=== PATIENT | female | born 1975 | race Caucasian/White ===

== ENCOUNTER 2016-08-02 00:54 | Emergency (ER) | payer OTHER ==
[~2016-08-02] VITALS: Ht 162.6 cm; Wt 99.0 kg
[~2016-08-02 00:54] MED LIST: AZEL0.15 NAE; FLUT0.15; OXYC7.5T78 PO; XPNIN INH
[2016-08-02 00:58] VITALS: TEMP 36.9; Ht 162.6 cm; Wt 99.0 kg
[2016-08-02] MEDS ORDERED: MoRPHine SULFATE 4 MG/ML 1 ML CARP\\VIAL IV STA (01:19)
[2016-08-02] MEDS ORDERED: ONDANSETRON INJ 2 MG/ML 2 ML VIAL IV STA (01:19)
[2016-08-02 01:52] LABS: BASO % 0.5 %; BASO ABS # 0.05 K/uL (0-0.2); COMPLETE YES; EOS % 4.5 %; IG% 0.3 %; LYMPH % 32.8 %; LYMPH ABS # 3.39 K/uL (1.2-3.4); MEAN CELL VOLUME 86.9 fL (80-100); MEAN CORPUSCULAR HEMOGLOBIN 29.9 pg (25-34); MEAN CORPUSCULAR HGB CONC 34.4 g/dl (32-36); MEAN PLATELET VOLUME 10.4 fL (7.4-10.4); MONO % 8.7 %; NEUT % 53.2 %; PLATELET COUNT 257 K/uL (130-400); RED BLOOD COUNT 4.95 M/uL (4.2-5.4); WHITE BLOOD COUNT 10.33 K/uL (4.8-10.8)
[2016-08-02 02:08] LABS: BUN/CREATININE RATIO 13.7 (10-20); C-REACTIVE PROTEIN 0.52 mg/dl (0-0.29); CALCIUM 8.2 mg/dl (8.5-10.1); CREATININE 0.8 mg/dl (0.60-1.20); POTASSIUM 3.9 mmol/L (3.5-5.1)
[2016-08-02] MEDS ORDERED: GADAVIST IV PRN (02:45)
--- NOTE | 2016-08-02 03:55 | EMERGENCY ROOM VISIT NOTE ---
History First contact with patient: 01:14 Chief Complaint: BACK PAIN Stated Complaint: PAIN History of Present Illness The patient is a 41 year old female who presents to the Emergency Room with complaints of severe neck pain that radiates down both arms the past few days after getting KYLER injection by Dr. Arenas on . She describes the pain as aching, ranging in severity 9 out of 10. Nothing makes it better or worse. Her Percocet is not helping. Patient called Dr. arenas and was advised to contact her spinal surgeon. She spoke to Dr. Lopez and is advised to go the ER for an updated MRI. She just had a cervical MRI July [id number]. This showed anterior cervical discectomy and fusion of C4 through C6. C6 and 7 with this osteophyte ridging with moderate bilateral foraminal narrowing. I did obtain the MRI report. Patient denies fevers, chills, numbness, tingling, chest pain, dyspnea, abdominal pain, swelling, drainage from injection site. Patient denies difficulties grasping objects or holding objects. Review of Systems See HPI for pertinent positives & negatives. A total of 10 systems reviewed and were otherwise negative. Past Medical/Surgical History Medical Problems: (1) Kidney stone (2) Ovarian cyst Surgical Problems: (1) History of cholecystectomy (2) History of hysterectomy Family History Diabetes mellitus FH: cancer FH: heart disease FH: lung disease Hypertension Kidney stones Social History Smoking Status: Never Smoker Smokeless Tobacco Use: No Drug Use: none Marital Status: Occupation Status: disabled Current/Historical Medications Scheduled Azelastine Hcl (Astepro), 2 SPRY MALI BID Cetirizine (Zyrtec), 10 MG PO QAM Fluticasone Propionate (Nasal) (Flonase Allergy Relief), 2 SPRAY NA BID Montelukast Sodium (Singulair), 10 MG PO HS Multiple Vitamins W/ Minerals (Centrum), 1 TAB PO QAM Ranitidine Hcl (Zantac), 300 MG PO BID Sertraline (Zoloft), 100 MG PO HS [Formula 303], 2 TAB PO QID Scheduled PRN Amoxicillin (Amoxil), 2,000 MG PO DAILY PRN for prior to dental appointments Calcium Glycerophosphate (Prelief), 1 TAB PO DIRECTED PRN for TAKE BEFORE DRINKING SODA Levalbuterol Tartrate (Xopenex Hfa), 2 PUFFS INH Q4 PRN for Shortness of Breath Oxycodone/Acetaminophen 5MG/325MG (Percocet 5MG/325MG), 1 TABLET PO Q4H PRN for Pain Tizanidine (Zanaflex), 4 MG PO BID PRN for Pain Allergies Coded Allergies: Codeine (Unverified Allergy, Intermediate, n/v, 08/02/16) Indomethacin (Unverified Allergy, Intermediate, n/v, 08/02/16) Levofloxacin (Unverified Allergy, Intermediate, hives, 08/02/16) Nortriptyline (Unverified Allergy, Intermediate, rash, 08/02/16) Tetracyclines (Unverified Allergy, Intermediate, rash/hives, 08/02/16) Azithromycin (Unverified Allergy, Unknown, HIVES, 08/02/16) Cefaclor (Unverified Allergy, Unknown, HIVES, 08/02/16) Cefuroxime (Unverified Allergy, Unknown, rash, 08/02/16) Erythromycin (Verified Allergy, Unknown, AKNE-MYCIN--HIVES, 08/02/16) Fluoxetine (Unverified Allergy, Unknown, HIVES, 08/02/16) Medroxyprogesterone (Unverified Allergy, Unknown, HIVES, 08/02/16) Tramadol (Unverified Allergy, Unknown, ., 08/02/16) Uncoded Allergies: DERMABOND (Allergy, Mild, HIVES, 08/15/12) Physical Exam Vital Signs Date Time Temp Pulse Resp B/P Pulse Ox O2 Delivery O2 Flow Rate FiO2 08/02/16 03:18 76 16 112/64 96 Room Air 08/02/16 00:58 36.9 85 16 111/72 96 Room Air Physical Exam VITALS: Vitals are noted on the nurse's note and reviewed by myself. Vital signs stable. GENERAL: Pleasant female, in no acute distress, nondiaphoretic, well-developed well-nourished. SKIN: The skin was without rashes, erythema, edema, or bruising. There is no tenting of the skin. Capillary reflex less than 2 seconds. HEAD: Normocephalic atraumatic. EARS: External auditory canals clear, tympanic membranes pearly horvath without erythema or effusion bilaterally. EYES: Pupils equal round and reactive to light and accommodation. Conjunctivae without injection, sclerae without icterus. Extraocular movements intact. NOSE: Patent, turbinates without inflammation or discharge. MOUTH: Mucous membranes moist. Pharynx without erythema or exudate. Uvula midline. Airway patent. Tongue does not deviate. NECK: Supple without nuchal rigidity. No lymphadenopathy. No thyromegaly. Cervical spine is tender C6 and 7 without palpable abscess erythema or drainage over injection site. No JVD. HEART: Regular rate and rhythm without murmurs gallops or rubs. LUNGS: Clear to auscultation bilaterally without wheezes, rales or rhonchi. No dullness to percussion. No retractions or accessory muscle use. ABDOMEN: Positive bowel sounds x 4. Normal tympanic percussion. Soft, nontender, without masses or organomegaly. Dinh sign negative. No guarding or rebound tenderness. MUSCULOSKELETAL: No muscle atrophy, erythema, or edema noted. 5 out of 5 strength throughout. NEURO: Patient was alert and oriented to person place and time. Normal sensation to light and sharp touch. No focal neurological deficits. Medical Decision & Procedures Laboratory Results 08/02/16 01:40 Red Blood Count 4.95, Mean Corpuscular Volume 86.9, Mean Corpuscular Hemoglobin 29.9, Mean Corpuscular Hemoglobin Concent 34.4, Mean Platelet Volume 10.4, Neutrophils (%) (Auto) 53.2, Lymphocytes (%) (Auto) 32.8, Monocytes (%) (Auto) 8.7, Eosinophils (%) (Auto) 4.5, Basophils (%) (Auto) 0.5, Neutrophils # (Auto) 5.49, Lymphocytes # (Auto) 3.39, Monocytes # (Auto) 0.90, Eosinophils # (Auto) 0.47, Basophils # (Auto) 0.05 08/02/16 01:40 Test 08/02/16 01:40 White Blood Count 10.33 K/uL (4.8-10.8) Red Blood Count 4.95 M/uL (4.2-5.4) Hemoglobin 14.8 g/dL (12.0-16.0) Hematocrit 43.0 % (37-47) Mean Corpuscular Volume 86.9 fL (80-100) Mean Corpuscular Hemoglobin 29.9 pg (25-34) Mean Corpuscular Hemoglobin Concent 34.4 g/dl (32-36) Platelet Count 257 K/uL (130-400) Mean Platelet Volume 10.4 fL (7.4-10.4) Neutrophils (%) (Auto) 53.2 % Lymphocytes (%) (Auto) 32.8 % Monocytes (%) (Auto) 8.7 % Eosinophils (%) (Auto) 4.5 % Basophils (%) (Auto) 0.5 % Neutrophils # (Auto) 5.49 K/uL (1.4-6.5) Lymphocytes # (Auto) 3.39 K/uL (1.2-3.4) Monocytes # (Auto) 0.90 K/uL (0.11-0.59) Eosinophils # (Auto) 0.47 K/uL (0-0.5) Basophils # (Auto) 0.05 K/uL (0-0.2) RDW Standard Deviation 44.0 fL (36.4-46.3) RDW Coefficient of Variation 14.0 % (11.5-14.5) Immature Granulocyte % (Auto) 0.3 % Immature Granulocyte # (Auto) 0.03 K/uL (0.00-0.02) Erythrocyte Sedimentation Rate 30 mm/hr (0-21) Anion Gap 8.0 mmol/L (3-11) Est Creatinine Clear Calc Drug Dose 103.7 ml/min Estimated GFR () 104.7 Estimated GFR (Non- 90.3 BUN/Creatinine Ratio 13.7 (10-20) Calcium Level 8.2 mg/dl (8.5-10.1) C-Reactive Protein 0.52 mg/dl (0-0.29) Medications Administered Medications (Trade) Dose Ordered Sig/Damon Route Start Time Stop Time Status Last Admin Dose Admin Morphine Sulfate (MoRPHine SULFATE INJ) 4 mg NOW STAT IV 08/02/16 01:19 08/02/16 01:26 DC 08/02/16 01:19 4 MG Ondansetron HCl (Zofran Inj) 4 mg NOW STAT IV 08/02/16 01:19 08/02/16 01:26 DC 08/02/16 01:19 4 MG ED Course Prior records/ancillary studies reviewed. Triage Nursing notes reviewed. Additional history obtained from family. The patient's history was concerning for neck pain. Differential diagnosis: Etiologies such as musculoskeletal, disc herniation, fracture, metastatic disease, cord compression, discitis, infection, acute exacerbation of chronic neck pain, complication of recent injection, as well as others were entertained. Physical findings: As above. No focal neurologic findings noted. ER treatment provided: morphine, zofran On reassessment the patient felt better. Diagnostics interpreted by me: The labs revealed no worrisome leukocytosis or electrolyte abnormality Imaging studies: MRI C SPINE : Anterior fusion C4-C6 with plate and screw device in disc spacers. At C6-C7, posterior disc/osteophyte complex causes mild canal narrowing and abuts and minimally deforms the ventral aspect of the cord, greater towards the right, but CSF space is maintained posteriorly and laterally and there is no abnormal cord signal. Uncovertebral osteophytes cause moderate right and mild left foraminal narrowing. At C3-C4, minimal posterior disc bulge without significant canal narrowing. No abnormal enhancement or epidural collection. Small meningioma in T3 vertebral body. Incidentally noted. Radiologist: Rai Mcclain MD This appears to be consistent with cervical radiculopathy who had unchanged MRI and was neurovascularly and neurologically intact. She is advised to follow-up with orthopedic spine doctor in a few days or here in the ER sooner for severe pain, numbness, tingling, worsening signs or symptoms or as needed. Patient ambulated out of the ER without difficulties. By the evaluation outlined above emergent etiologies such as fracture, metastatic disease, infection, cord compression, as well as others were deemed relatively unlikely. The pt informed about the findings as listed above. All questions were answered and pleased with the treatment. Return instructions were outlined and the patient was discharged in stable condition. Patient receives Percocet from her family care doctor. She has this at home. Referral: The patient was referred back to spine or primary care physician for follow-up in 2 to 3 days for a recheck of the current condition. Case reviewed by attending. Medical Decision as above [place] Drug Monitoring Program Search Results: patient reviewed within database, no issues identified Impression Primary Impression: Cervical radiculopathy Departure Information Dispostion Home / Self-Care Condition GOOD Referrals Archie Thompson M.D. (PCP) Patient Instructions My [facility] Additional Instructions DO NOT drive, drink alcohol, operate machinery, or perform dangerous activities today. You were given medications in the ER that can affect your ability to safely function or operate a vehicle. Oxycodone (OxyIR) 5mg: Take 1-2 pills every four hours for breakthrough pain. Avoid alcohol, operating machinery or dangerous equipment, working on ladders or roofs, DRIVING, or situations where being under the influence may be dangerous. It is recommended to use an [id number] stool softener such as Colace, 100mg twice daily while taking this medication to avoid constipation. Ibuprofen(Motrin, Advil) may be used for fever or pain. Use 600mg every six hours as needed. Take with food. Avoid using more than 2400mg in a 24 hour period. Do not use 2400mg per day for more than three consecutive days without physician direction. Prolonged inappropriate use can lead to stomach upset or ulcers. This medication can be taken if you need to drive, work, or perform activities which may be dangerous when taking narcotic pain medication. (AND/OR) Acetaminophen(Tylenol) may be used for fever or pain. Use 1000mg every six hours as needed. Avoid using more than 3000mg in a 24 hour period. This medication can be taken if you need to drive, work, or perform activities which may be dangerous when taking narcotic pain medication. Rest and avoid heavy lifting until your symptoms resolve and then gradually return to full activity. A good rule of thumb is if it hurts your neck to perform a certain activity, then it should be avoided until you are healthy again. A heating pad, warm compresses, or a hot shower may help with tight muscles and can be done several times a day as needed. Continue current medications. Return to the ER immediately for any numbness, tingling, severe pain, loss of control of your bowels or bladder, inability to walk, or as needed. Follow up with your primary care physician/orthopedics spine within 3-5 days for a recheck of your current condition.
[2016-08-02 04:07] VITALS: BP 112/72; PULSE 77; O2SAT 94
--- NOTE | 2016-08-02 08:04 | DIAGNOSTIC IMAGING REPORT ---
CERVICAL SPINE MRI WITH AND WITHOUT CONTRAST HISTORY: SEVERE NECK PAIN AFTER EPIDURAL TECHNIQUE: Multiplanar multisequence MRI of the cervical spine was performed both before and after the use of intravenous contrast. COMPARISON STUDY: None. FINDINGS: Mild motion artifact. The visualized brain parenchyma is within normal limits. Cervical spinal cord image is normal signal intensity. A 6 mm hemangioma at T3. Anterior cervical discectomy and fusion from C4 through C6. Prevertebral soft tissues and the C1-C2 interval are maintained. No fractures identified. Moderate to severe disc space narrowing at C6-C7 and mild disc space narrowing at C3-C4. Postcontrast sequences show no abnormal enhancement. No epidural fluid collections. C2-C3: No significant central canal or neural foraminal narrowing. C3-C4: Small broad-based posterior disc bulge without central canal or neural foraminal narrowing. C4-C5: No significant central canal or neural foraminal narrowing. C5-C6: No significant central canal or neural foraminal narrowing. C6-C7: Small broad-based posterior disc bulge with a right paracentral focal disc protrusion which abuts and slightly deforms the right anterior cord. There is moderate right and mild left neural foraminal narrowing. C7-T1: No significant central canal or neural foraminal narrowing. IMPRESSION: 1. Anterior cervical discectomy and fusion from C4 through C6. 2. Small broad-based posterior disc bulge with a right paracentral focal disc protrusion at C6-C7. This abuts and slightly deforms the right anterior cord. There is moderate right and mild left neural foraminal narrowing. 3. Small broad-based posterior disc bulge at C3-C4 without significant central canal or neural foraminal narrowing. Electronically signed by: Guillermo Burger M.D. 08/02/2016 8:03 AM Dictated Date/Time: 08/02/2016 7:50 AM
[2016-09-15] MEDS ORDERED: AMOX500C3 PO (14:08)
[2016-09-15] MEDS ORDERED: SERT-234 PO (14:54)
[2016-09-15] MEDS ORDERED: TIZA4CAP PO (14:54)
[2016-09-15] MEDS ORDERED: CETI10TA84 PO (14:54)
[2016-09-15] MEDS ORDERED: MONT1TAB3 PO (14:54)
[2016-09-15] MEDS ORDERED: FORMULA 303 PO (14:54)
[2016-09-15] MEDS ORDERED: MULTCHW3 PO (14:54)
[2016-09-15] MEDS ORDERED: CALC-44 PO (14:54)
[2016-09-15] MEDS ORDERED: RANI300T PO (18:55)
[2017-01-01] MEDS ORDERED: GABA-113 PO (13:35)
== END 2016-08-02 04:08 | disposition home or self-care (01) ==
LOC: C.EDB 00:55 → C.EDA 04:08
DX: M54.12 Radiculopathy, cervical region (principal); Z87.442 Personal history of urinary calculi; Z79.899 Other long term (current) drug therapy

== ENCOUNTER 2016-09-15 19:30 | Emergency (ER) | payer OTHER ==
[~2016-09-15] VITALS: Ht 163.8 cm; Wt 99.6 kg
[~2016-09-15 19:30] MED LIST changes: +AMOX500C3 PO; +CALC-44 PO; +CETI10TA84 PO; +FORMULA 303 PO; +MONT1TAB3 PO; +MULTCHW3 PO; +RANI300T PO; +SERT-234 PO; +TIZA4CAP PO
[2016-09-15 19:36] VITALS: BP 122/77; PULSE 104; TEMP 36.7; O2SAT 96; Ht 163.8 cm; Wt 99.6 kg
[2016-09-15] MEDS ORDERED: PRED20TA PO (19:59)
--- NOTE | 2016-09-15 19:59 | EMERGENCY ROOM VISIT NOTE ---
History Report prepared by Ester: Ada Romano Under the Supervision of: Dr. Joel Smith D.O. First contact with patient: 19:42 Chief Complaint: ALLERGIC REACTION Stated Complaint: ALLERGIC REACTIONS History of Present Illness The patient is a 41 year old female who presents to the Emergency Room with complaints of a worsening allergic reaction beginning 4 days ago. A number of years ago the patient had surgery on her neck for cervical fusion of two disks. She returned to the same doctor four days ago for a discogram with contrast done on her C3 and C7 vertebrae. She has 3 injection sites in the front of her neck. The patient states that there was iodine used over the front of her neck and did run down the back of her neck. The injection sites became red and itchy "welts" when she awoke four days ago. The rash has now progressed to itchy hives covering her shoulder, chest, neck, and behind her right ear. The patient has been taking Benadryl without any relief. She denies shortness of breath, difficulty breathing, and throat swelling. Source of History: patient Onset: 4 days ago Position: neck Quality: other (itchy) Timing: worsening Modifying Factors (Worsening): other (recent discogram) Associated Symptoms: + rash, No SOB Note: Pt denies difficulty breathing and throat swelling. Review of Systems See HPI for pertinent positives & negatives. A total of 10 systems reviewed and were otherwise negative. Past Medical & Surgical Medical Problems: (1) Kidney stone (2) Ovarian cyst Surgical Problems: (1) History of cholecystectomy (2) History of hysterectomy Family History Diabetes mellitus FH: cancer FH: heart disease FH: lung disease Hypertension Kidney stones Social History Smoking Status: Never Smoker Drug Use: none Marital Status: Occupation Status: disabled Current/Historical Medications Scheduled Cetirizine (Zyrtec), 10 MG PO QAM Gabapentin (Gabapentin), 400 MG PO TID Montelukast Sodium (Singulair), 10 MG PO HS Multiple Vitamins W/ Minerals (Centrum), 1 TAB PO QAM Prednisone (Prednisone), 2 TAB PO DAILY Ranitidine Hcl (Zantac), 300 MG PO BID Sertraline (Zoloft), 100 MG PO HS [Formula 303], 2 TAB PO QID Scheduled PRN Amoxicillin (Amoxil), 2,000 MG PO DAILY PRN for prior to dental appointments Azelastine Hcl (Astepro), 2 SPRY MALI BID PRN for Nasal Congestion Calcium Glycerophosphate (Prelief), 1 TAB PO DIRECTED PRN for TAKE BEFORE DRINKING SODA Fluticasone Propionate (Nasal) (Flonase Allergy Relief), 2 SPRAY NA BID PRN for Nasal Congestion Levalbuterol Tartrate (Levalbuterol Tartrate Hfa), 2 PUFFS INH Q4 PRN for SOB/ Wheezing Oxycodone/Acetaminophen 5MG/325MG (Oxycodone/Acetaminophen 5MG/325MG), 1 TABLETS PO Q4H PRN for Pain Tizanidine (Zanaflex), 4 MG PO BID PRN for Pain Allergies Coded Allergies: Codeine (Unverified Allergy, Intermediate, n/v, 09/15/16) Esomeprazole (Verified Allergy, Intermediate, HIVES, 09/15/16) Indomethacin (Unverified Allergy, Intermediate, n/v, 09/15/16) Levofloxacin (Unverified Allergy, Intermediate, hives, 09/15/16) Nortriptyline (Unverified Allergy, Intermediate, rash, 09/15/16) Tetracyclines (Unverified Allergy, Intermediate, rash/hives, 09/15/16) Azithromycin (Unverified Allergy, Unknown, HIVES, 09/15/16) Cefaclor (Unverified Allergy, Unknown, HIVES, 09/15/16) Cefuroxime (Unverified Allergy, Unknown, rash, 09/15/16) Erythromycin (Verified Allergy, Unknown, AKNE-MYCIN--HIVES, 09/15/16) Fluoxetine (Unverified Allergy, Unknown, HIVES, 09/15/16) Medroxyprogesterone (Unverified Allergy, Unknown, HIVES, 09/15/16) Tramadol (Unverified Allergy, Unknown, ., 09/15/16) Uncoded Allergies: DERMABOND (Allergy, Mild, HIVES, 08/15/12) Physical Exam Vital Signs Date Time Temp Pulse Resp B/P Pulse Ox O2 Delivery O2 Flow Rate FiO2 09/15/16 19:58 Room Air 09/15/16 19:36 36.7 104 21 122/77 96 Room Air Physical Exam CONSTITUTIONAL/VITAL SIGNS: Reviewed / noted above. GENERAL: Non-toxic in appearance. INTEGUMENTARY: Warm, dry, and [place]. HEAD: Normocephalic. EYES: without scleral icterus or trauma. ENT/OROPHARYNX: clear and moist. There are three puncture sites with mild surrounding erythema in the anterior neck, two on the right and one on the left. No clear infection at this point. There is a small erythematous/ vesicular rash behind the right ear and one in the mid-cervical region posteriorly. This has an appearance of contact dermatitis. LYMPHADENOPATHY/NECK: Is supple without lymphadenopathy or meningismus. RESPIRATORY: Lungs clear and equal. CARDIOVASCULAR: Regular rate and rhythm. GI/ABDOMEN: Soft and nontender. No organomegaly or pulsatile mass. No rebound or guarding. Normal bowel sounds. EXTREMITIES: Warm and well perfused. BACK: No CVA tenderness. NEUROLOGICAL: Intact without focal deficits. PSYCHIATRIC: normal affect. MUSCULOSKELETAL: Normally developed with good muscle tone. Medical Decision & Procedures Medications Administered Medications (Trade) Dose Ordered Sig/Damon Route Start Time Stop Time Status Last Admin Dose Admin Prednisone (PredniSONE TAB) 60 mg NOW STAT PO 09/15/16 19:52 09/15/16 19:53 DC 09/15/16 20:04 60 MG ED Course 1942: Previous medical records were reviewed. The patient was evaluated in room A11. A complete history and physical examination was performed. At this time, I discussed the results and treatment plan with the patient. I answered all pertaining questions that she had. She expressed understanding and verbalized agreement. The patient will be discharged home. 1951: Prednisone 60 mg PO. Medical Decision Differential diagnosis: Etiologies such as allergic reaction, anaphylaxis, urticaria, Velazquez-Andre syndrome, toxic epidermal necrolysis, erythema multiforme, cellulitis, as well as others were entertained. This is a 41-year-old female who presents to the ED with a chief complaint of a possible allergic reaction. The patient states that she had a discogram 4 days ago at [facility]. The patient reports that she had 2 injections in the right anterior neck and one injection into the left anterior neck to reach the cervical discs. The patient reports some itchiness as well as some rashes on her skin. The rashes are behind the right ear and in the posterior cervical region. She states that they did use Betadine over the entire neck during the procedure. She denies any trouble breathing or any wheezing or sensation of airway closure. Her vital signs are stable. Physical exam reveals a small area of contact dermatitis appearing rash behind the right ear as well as one in the posterior cervical region in the midline. These each are approximately the size of a quarter. There are no other evidence of hives on the body. The patient was treated with prednisone. She is told to use cortisone over the rashes specifically. She is taking Benadryl. Follow-up with PCP recommended. Impression Primary Impression: Contact dermatitis Scribe Attestation The scribe's documentation has been prepared under my direction and personally reviewed by me in its entirety. I confirm that the note above accurately reflects all work, treatment, procedures, and medical decision making performed by me. Departure Information Dispostion Home / Self-Care Prescriptions Prednisone (Prednisone) 20 Mg Tab 2 TAB PO DAILY for 4 Days, #8 TAB Prov: Joel Smith D.O. 09/15/16 Referrals Archie Thompson M.D. (PCP) Forms HOME CARE DOCUMENTATION FORM, IMPORTANT VISIT INFORMATION Patient Instructions My [facility] Additional Instructions Prednisone as prescribed. Continue Benadryl for itching. Use topical cortisone cream on the rashes. Follow-up with PCP for recheck in 3 days. Problem Qualifiers Primary Impression: Contact dermatitis Contact dermatitis type: allergic Contact dermatitis trigger: other chemical product Qualified Codes: L23.5 - Allergic contact dermatitis due to other chemical products
[2016-09-15] MEDS ORDERED: NRN400 PO (20:14)
[2016-09-15] MEDS ORDERED: LEVA45AE INH (20:14)
[2016-09-15] MEDS ORDERED: OXYC-643 PO (20:14)
[2017-01-01] MEDS ORDERED: GABA-113 PO (13:35)
== END 2016-09-15 20:17 | disposition home or self-care (01) ==
LOC: C.EDB 19:32 → C.EDA 20:17
DX: T50.8X5A Adverse effect of diagnostic agents, initial encounter (principal); L30.8 Other specified dermatitis; Y84.8 Other medical procedures as the cause of abnormal reaction of the patient, or of later complication, without mention of misadventure at the time of the procedure

== ENCOUNTER 2016-10-08 13:24 | Emergency (ER) | payer OTHER ==
[~2016-10-08] VITALS: Ht 162.6 cm; Wt 100.5 kg
[~2016-10-08 13:24] MED LIST changes: +LEVA45AE INH; +NRN400 PO; +OXYC-643 PO; -OXYC7.5T78 PO; -XPNIN INH
[2016-10-08 13:38] VITALS: Ht 162.6 cm; Wt 100.5 kg
[2016-10-08] MEDS ORDERED: MoRPHine SULFATE 4 MG/ML 1 ML CARP\\VIAL IV STA (13:58)
[2016-10-08] MEDS ORDERED: SODIUM CHLORIDE 0.9% 1000ML 1,000 ML IV STA (13:58)
[2016-10-08] MEDS ORDERED: ONDANSETRON INJ 2 MG/ML 2 ML VIAL IV STA (13:58)
--- NOTE | 2016-10-08 14:06 | EMERGENCY ROOM VISIT NOTE ---
History First contact with patient: 13:46 Chief Complaint: HEADACHE Stated Complaint: HEADACHE AND RASH History of Present Illness The patient is a 41 year old female who presents to the Emergency Department by private vehicle for evaluation of her headache. The patient reports a significant past medical history of cervical disc disease. She had a myelogram performed at [facility] for evaluation of her cervical spine. This was performed on Saturday. On Saturday, she developed a headache which was worse with changes in position. She had complete resolve headache when laying flat. Her symptoms have worsened in intensity of the headache has worsened as well. She contacted her surgeon who directed her to the emergency Department for possible blood patch. The patient rates her current discomfort as a 10/10. She 's been taking Percocet for her neck with mild relief of symptoms. The patient denies any significant neck pain. There is been no changes in symptoms otherwise. She denies any numbness or weakness into the distal extremities. She denies any fevers, chills, blurry vision, double vision, slurred speech, facial droop, unilateral weakness/numbness, chest pain, or low back pain. Review of Systems A complete 10-point Review of Systems was discussed with the patient, with pertinent positives and negatives listed in the History of Present Illness. All remaining Review of Systems questions can be considered negative unless otherwise specified. Past Medical/Surgical History Medical Problems: (1) Kidney stone (2) Ovarian cyst Surgical Problems: (1) History of cholecystectomy (2) History of hysterectomy Family History Diabetes mellitus FH: cancer FH: heart disease FH: lung disease Hypertension Kidney stones Social History Smoking Status: Never Smoker Drug Use: none Marital Status: Occupation Status: disabled Current/Historical Medications Scheduled Cetirizine (Zyrtec), 10 MG PO QAM Gabapentin (Gabapentin), 400 MG PO TID Montelukast Sodium (Singulair), 10 MG PO HS Multiple Vitamins W/ Minerals (Centrum), 1 TAB PO QAM Ranitidine Hcl (Zantac), 300 MG PO BID Sertraline (Zoloft), 100 MG PO HS [Formula 303], 2 TAB PO QID Scheduled PRN Amoxicillin (Amoxil), 2,000 MG PO DAILY PRN for prior to dental appointments Azelastine Hcl (Astepro), 2 SPRY MALI BID PRN for Nasal Congestion Calcium Glycerophosphate (Prelief), 1 TAB PO DIRECTED PRN for TAKE BEFORE DRINKING SODA Fluticasone Propionate (Nasal) (Flonase Allergy Relief), 2 SPRAY NA BID PRN for Nasal Congestion Levalbuterol Tartrate (Levalbuterol Tartrate Hfa), 2 PUFFS INH Q4 PRN for SOB/ Wheezing Oxycodone/Acetaminophen 5MG/325MG (Oxycodone/Acetaminophen 5MG/325MG), 1 TABLETS PO Q4H PRN for Pain Tizanidine (Zanaflex), 4 MG PO BID PRN for Pain Allergies Coded Allergies: Codeine (Unverified Allergy, Intermediate, n/v, 10/08/16) Esomeprazole (Verified Allergy, Intermediate, HIVES, 10/08/16) Indomethacin (Unverified Allergy, Intermediate, n/v, 10/08/16) Levofloxacin (Unverified Allergy, Intermediate, hives, 10/08/16) Nortriptyline (Unverified Allergy, Intermediate, rash, 10/08/16) Tetracyclines (Unverified Allergy, Intermediate, rash/hives, 10/08/16) Azithromycin (Unverified Allergy, Unknown, HIVES, 10/08/16) Cefaclor (Unverified Allergy, Unknown, HIVES, 10/08/16) Cefuroxime (Unverified Allergy, Unknown, rash, 10/08/16) Erythromycin (Verified Allergy, Unknown, AKNE-MYCIN--HIVES, 10/08/16) Fluoxetine (Unverified Allergy, Unknown, HIVES, 10/08/16) Iodine (Verified Allergy, Unknown, rash, 10/08/16) Medroxyprogesterone (Unverified Allergy, Unknown, HIVES, 10/08/16) Tramadol (Unverified Allergy, Unknown, ., 10/08/16) Uncoded Allergies: DERMABOND (Allergy, Mild, HIVES, 08/15/12) Physical Exam Vital Signs Date Time Temp Pulse Resp B/P Pulse Ox O2 Delivery O2 Flow Rate FiO2 10/08/16 17:48 36.8 78 20 124/77 95 10/08/16 17:41 78 20 124/77 95 Room Air 10/08/16 16:47 81 20 119/81 94 Room Air 10/08/16 16:00 78 20 119/81 95 Room Air 10/08/16 15:22 78 20 121/74 95 Room Air 10/08/16 15:00 81 20 118/71 95 Room Air 10/08/16 13:38 36.8 88 20 121/74 94 Room Air Pain Rating (0-10): 10 Physical Exam VITAL SIGNS - Vital signs and nursing notes were reviewed. GENERAL - 41-year-old female appearing her stated age who is in no acute distress. Communicates well with provider and answers questions appropriately. HEAD - Normocephalic, Atraumatic. No Grimes's Sign or Raccoon's Eyes. No depressed skull fractures palpable. EYES - PERRL with EOMI bilaterally. Sclera anicteric. Palpebral conjunctiva pink and moist with no injection noted. EARS - No deformities of external structures noted on gross examination bilaterally. No pain elicited with palpation of the tragus bilaterally. External auditory canals without discharge or otorrhea. Tympanic membranes pearly horvath without retraction or bulging. NOSE - Midline and without cyanosis. No epistaxis or purulent drainage noted. Septum midline without deviation or septal hematoma noted. MOUTH/OROPHARYNX - Without perioral cyanosis. Buccal mucosa pink and moist and without leukoplakia. Tongue midline with equal elevation of palate bilaterally. No tonsillar hypertrophy, erythema, or exudates noted. Good dentition noted. NECK - Neck with FROM. Supple to palpation. No lymphadenopathy noted. No nuchal rigidity. LUNGS - Chest wall symmetric without accessory muscle use, intercostals retractions, or central cyanosis. Normal vesicular breath sounds CTA B/L. No wheezes, rales, or rhonchi appreciated. CARDIAC - RRR with S1/S2. No murmur, rubs, or gallops appreciated. BACK - no erythema or fluctuance to palpation noted to the lumbar spine. EXTREMITIES - No pretibial edema present. +3/5 radial and dorsalis pedis pulses palpated throughout. FROM with no tremors, fasciculations, or clonus noted on PROM throughout. +5/5 strength noted in UE/LE bilaterally. NEUROLOGIC - Cranial nerves II through XII grossly intact. Sensory intact to light touch throughout. Patellar reflexes +2/4. Patient able to perform rapid alternating movements appropriately. PSYCH - A&Ox3 and cooperates fully with examiner. Pt is very pleasant and interacts well with examiner. Medical Decision & Procedures Laboratory Results 4/24/17 14:40 Red Blood Count 5.08, Mean Corpuscular Volume 87.8, Mean Corpuscular Hemoglobin 30.1, Mean Corpuscular Hemoglobin Concent 34.3, Mean Platelet Volume 10.1, Neutrophils (%) (Auto) 67.6, Lymphocytes (%) (Auto) 20.5, Monocytes (%) (Auto) 7.1, Eosinophils (%) (Auto) 4.2, Basophils (%) (Auto) 0.4, Neutrophils # (Auto) 7.60, Lymphocytes # (Auto) 2.30, Monocytes # (Auto) 0.80, Eosinophils # (Auto) 0.47, Basophils # (Auto) 0.04 10/08/16 14:40 Test 10/08/16 14:40 10/08/16 15:44 White Blood Count 11.23 K/uL (4.8-10.8) Red Blood Count 5.08 M/uL (4.2-5.4) Hemoglobin 15.3 g/dL (12.0-16.0) Hematocrit 44.6 % (37-47) Mean Corpuscular Volume 87.8 fL (80-100) Mean Corpuscular Hemoglobin 30.1 pg (25-34) Mean Corpuscular Hemoglobin Concent 34.3 g/dl (32-36) Platelet Count 215 K/uL (130-400) Mean Platelet Volume 10.1 fL (7.4-10.4) Neutrophils (%) (Auto) 67.6 % Lymphocytes (%) (Auto) 20.5 % Monocytes (%) (Auto) 7.1 % Eosinophils (%) (Auto) 4.2 % Basophils (%) (Auto) 0.4 % Neutrophils # (Auto) 7.60 K/uL (1.4-6.5) Lymphocytes # (Auto) 2.30 K/uL (1.2-3.4) Monocytes # (Auto) 0.80 K/uL (0.11-0.59) Eosinophils # (Auto) 0.47 K/uL (0-0.5) Basophils # (Auto) 0.04 K/uL (0-0.2) RDW Standard Deviation 44.6 fL (36.4-46.3) RDW Coefficient of Variation 13.8 % (11.5-14.5) Immature Granulocyte % (Auto) 0.2 % Immature Granulocyte # (Auto) 0.02 K/uL (0.00-0.02) Anion Gap 4.0 mmol/L (3-11) Est Creatinine Clear Calc Drug Dose 113.0 ml/min Estimated GFR () 115.0 Estimated GFR (Non- 99.2 BUN/Creatinine Ratio 10.5 (10-20) Calcium Level 9.0 mg/dl (8.5-10.1) Chemistry Specimen Hemolysis Bedside Glucose 84 mg/dl (70-90) Medications Administered Medications (Trade) Dose Ordered Sig/Damon Route Start Time Stop Time Status Last Admin Dose Admin Sodium Chloride (Nss 1000ml) 1,000 ml @ 999 mls/hr Q1H1M STAT IV 10/08/16 13:58 10/08/16 14:58 DC 10/08/16 15:21 999 MLS/HR ED Course Patient was seen and evaluated by myself. Labs were drawn, saline lock and complete. The patient was hydrated with a 1000 mL normal saline bolus. I did speak with Dr. Contreras of anesthesia. He agrees to perform a blood patch after evaluate the patient. Blood patch was performed. The patient had resolved of symptoms. Patient was monitored in the emergency department for green one hour without return of symptoms. Patient was educated on today's findings. She was educated on worrisome symptoms for return visit to the emergency department. Patient discharged home in good condition. Medical Decision Given the patient's presentation and stated complaints, I did elect to perform the above-mentioned workup. The patient presents today with what appears to be a spinal headache. Her headache is positional only. She has no fever. She does have mild leukocytosis. She has no meningeal findings. Anesthesia was kind enough to perform a blood patch. This provided complete resolve symptoms for the patient. The patient was monitored for greater than one hour without return of symptoms. She'll follow-up with her specialists from today's visit. She will return for any changing or worsening symptoms. Patient discharged home in good condition. In the evaluation and treatment of this patient, the following differential diagnoses were considered: Migraine Headache, Intracranial Hemorrhage, Subdural Hematoma, Subarachnoid Hemorrhage, Cerebral Aneurysm, Temporal/Giant Cell Arteritis, Tension Headache, Meningitis, Encephalitis, or Hydrocephalus. Impression Primary Impression: Spinal headache Departure Information Dispostion Home / Self-Care Condition GOOD Referrals No Doctor, Assigned (PCP) Patient Instructions My [facility] Additional Instructions You have been treated in the Emergency Department for a Headache. For pain control, you can use the following jyfu-kia-rjuqayh medicines (if >12 yo): - Regular strength (325mg/tab) Tylenol (acetaminophen) 2 tabs every 4-6 hours as needed. Do not exceed 12 tablets in a 24 hour period. Avoid taking more than 4 grams (4000 mg) of Tylenol per day. This includes any other sources of acetaminophen you may take on a regular basis. - Regular strength (200 mg/tab) Advil (ibuprofen) 1-2 tabs every 4-6 hours as needed. Do not exceed a dose of 3200 mg per day. You should relax in a quiet, dark place for the rest of the day. Avoid any possible triggers including: cigarette smoke, caffeine, nicotine, chocolate, wine, beer, loud noises or music, or bright lights. You should schedule a follow-up appointment in 2-3 days with your Primary Care Provider or established Neurologist for further evaluation and treatment of your Headache. Return to the Emergency Department if your current symptoms worsen despite treatment course outlined above, or if you develop any of the following symptoms : intractable pain despite aforementioned treatment course, visual disturbances , loss of vision, unilateral weakness or facial drooping, slurring of speech, loss of coordination, or loss of consciousness.
[2016-10-08 14:57] LABS: BASO % 0.4 %; BASO ABS # 0.04 K/uL (0-0.2); COMPLETE YES; EOS % 4.2 %; HEMATOCRIT 44.6 % (37-47); IG% 0.2 %; LYMPH % 20.5 %; MEAN CELL VOLUME 87.8 fL (80-100); MEAN CORPUSCULAR HEMOGLOBIN 30.1 pg (25-34); MEAN CORPUSCULAR HGB CONC 34.3 g/dl (32-36); MEAN PLATELET VOLUME 10.1 fL (7.4-10.4); MONO % 7.1 %; NEUT % 67.6 %; PLATELET COUNT 215 K/uL (130-400); RED BLOOD COUNT 5.08 M/uL (4.2-5.4); WHITE BLOOD COUNT 11.23 K/uL (4.8-10.8)
[2016-10-08 15:28] LABS: BUN/CREATININE RATIO 10.5 (10-20); CREATININE 0.74 mg/dl (0.60-1.20)
--- NOTE | 2016-10-08 16:50 | Procedure Note ---
Procedure Note Procedure Date Oct 08, 2016. Procedure Description Procedure Name: Epidural blood patch Procedure time out: side/site verified, patient ID confirmed, correct procedure Consent obtained: written Performed by: attending Indications: therapeutic Contraindications: none Description: Procedure was performed sterilely. The patient's back was prepped with Chloraprep. A sterile drape was placed. Lido 1% skin wheel placed at the L3/4 disc space. 17 Gauge Touhy using loss of resistance to saline at 6 cm was placed. The epidural catheter was threaded into the epidural space and capped. The patient's left arm was sterilely prepped with Chloraprep. Using a sterile IV kit, a sterile 20 gauge IV was inserted into the LUE. About 12 ml of blood was obtained and then sterilely injected into the epidural catheter. The epidural catheter was removed with tip intact. The patient stated that her headache was almost instantly relieved. Complications: none Patient tolerated procedure: well Post-procedure vital signs: reviewed and stable Comments: The patient had a small rash over the previous puncture site where a bandage had been placed. She also had several petechia over her lower back. The epidural blood patch was placed one level above the previous puncture where there was no rash. Dr. Agosto evaluated the patient with me and we agreed that Chloraprep should be okay for the patient as a better alternative to Betadine or Duraprep. However, the patient was counseled that she may develop a rash or itchiness. If it is mild than she was instructed to take Benadryl. If it becomes more severe than she is to contact or go to the ER where she may need to be started on oral steroids. The patient agreed to and accepted this risk. I spoke to Oli, the ER PA about the patient and concern for a developing rash. The patient was encouraged to drink plenty of clear fluids as well as caffeinated beverages. She can use over the counter pain medicine as tolerated.
[2016-10-08 17:48] VITALS: BP 124/77; PULSE 78; TEMP 36.8; O2SAT 95
[2017-01-01] MEDS ORDERED: GABA-113 PO (13:35)
== END 2016-10-08 17:49 | disposition home or self-care (01) ==
LOC: C.EDB 13:26
DX: R51 Headache (principal); R21 Rash and other nonspecific skin eruption; M50.90 Cervical disc disorder, unspecified, unspecified cervical region; Z79.899 Other long term (current) drug therapy; Z87.42 Personal history of other diseases of the female genital tract; Z87.442 Personal history of urinary calculi; Z82.49 Family history of ischemic heart disease and other diseases of the circulatory system; Z83.3 Family history of diabetes mellitus; Z83.6 Family history of other diseases of the respiratory system; Z84.1 Family history of disorders of kidney and ureter

== ENCOUNTER → 2016-12-06 | Outpatient (CLI) | payer OTHER ==
[~2016-12-06] MED LIST changes: +GABA-113 PO
[2016-12-06 15:02] LABS: BASO % 0.5 %; BASO ABS # 0.05 K/uL (0-0.2); COMPLETE YES; EOS % 4.2 %; HEMATOCRIT 47.3 % (37-47); IG% 0.2 %; LYMPH % 21.4 %; LYMPH ABS # 2.23 K/uL (1.2-3.4); MEAN CELL VOLUME 86.2 fL (80-100); MEAN CORPUSCULAR HEMOGLOBIN 29.1 pg (25-34); MEAN CORPUSCULAR HGB CONC 33.8 g/dl (32-36); MEAN PLATELET VOLUME 10.3 fL (7.4-10.4); MONO % 8.6 %; NEUT % 65.1 %; PLATELET COUNT 241 K/uL (130-400); RED BLOOD COUNT 5.49 M/uL (4.2-5.4); WHITE BLOOD COUNT 10.43 K/uL (4.8-10.8)
[2016-12-06 15:38] LABS: ALT/SGPT 32 U/L (12-78); BLOOD UREA NITROGEN 9 mg/dl (7-18); BUN/CREATININE RATIO 11.1 (10-20); CARBON DIOXIDE 23 mmol/L (21-32); CHLORIDE 106 mmol/L (98-107); GLUCOSE 86 mg/dl (70-99); POTASSIUM 3.8 mmol/L (3.5-5.1); SODIUM 139 mmol/L (136-145)
[2016-12-06 15:41] LABS: ALB/GLOB RATIO 0.9 (0.9-2); ALKALINE PHOSPHATASE 75 U/L (45-117); AST/SGOT 20 U/L (15-37)
== END | disposition home or self-care (01) ==
LOC: C.LAB 14:22
PROVIDERS: ATTEND Orthopaedic Surgery
DX: M50.90 Cervical disc disorder, unspecified, unspecified cervical region (principal); Z01.818 Encounter for other preprocedural examination

== ENCOUNTER → 2017-01-11 | Outpatient (CLI) | payer OTHER ==
[~2017-01-11] MED LIST changes: -NRN400 PO
[2017-01-11 15:43] LABS: URINE APPEARANCE CLEAR (CLEAR); URINE BILIRUBIN NEG (NEG); URINE COLOR DK YELLOW; URINE NITRITE POS (NEG); URINE PH 5.5 (4.5-7.5); URINE SPECIFIC GRAVITY 1.019 (1.000-1.030); UROBILINOGEN NEG (NEG)
[2017-01-11 15:51] LABS: MANUAL MICROSCOPIC REQUIRED? NO; REVIEW REQ? NO
== END | disposition home or self-care (01) ==
LOC: C.LAB1850 14:56
PROVIDERS: ATTEND Internal Medicine Pulmonary Disease
DX: R30.0 Dysuria (principal); L29.8 Other pruritus

== ENCOUNTER → 2017-03-21 | Day surgery (SDC) | payer OTHER ==
[2017-01-01 13:36] VITALS: BMI 37.0
[2017-03-04 15:38] VITALS: Ht 163.8 cm; Wt 100.0 kg
[~2017-03-21] VITALS: Ht 163.8 cm; Wt 100.0 kg
[~2017-03-21] MED LIST changes: +BUPIVACAINE 0.25% 2.5MG/ML PF 10 ML VIAL ONE; +LIDOCAINE HCL 1% MPF 5 ML VIAL ONE
--- NOTE | 2017-03-21 15:01 | History & Physical Bridge - SC ---
H&P Re-Evaluation Bridge Note: I have examined the patient, reviewed the History & Physical and in the interval since the performance of the History & Physical I have noted the following changes of clinical significance: No changes noted
[2017-03-21 15:27] VITALS: TEMP 37
--- NOTE | 2017-03-21 15:31 | Discharge Instructions ---
Discharge Instructions Date of Service Mar 21, 2017. Visit Reason for Visit: Low Back Pain Discharge Discharge Diagnosis / Problem: low back pain Discharge Goals Goal(s): Decrease discomfort, Improve function Activity Recommendations Activity Limitations: resume your previous activity Anesthesia . Post Anesthesia Instructions: If you have had General Anesthesia or IV Sedation: * Do not drive today. * Resume driving when surgeon permits. * Do not make important decisions or sign legal documents today. * Call surgeon for: 1. Temperature elevations greater than 101 degrees F. 2. Uncontrollable pain. 3. Excessive bleeding. 4. Persistent nausea and vomiting. 5. Medication intolerance (nausea, vomiting or rash). * For nausea and vomiting use only clear liquids such as: tea, soda, bouillon until nausea subsides, then gradually increase diet as tolerated. * If you have any concerns or questions, call your surgeon's office. If physician is unavailable and it is an emergency, call 911 or go to the nearest emergency room. . Diet Recommendations Recommended Home Diet: resume previous diet Procedures Procedures Performed: BILATERAL L5-S1 MEDIAL BRANCH BLOCKS Pending Studies Studies pending at discharge: no Medical Emergencies . Who to Call and When: Medical Emergencies: If at any time you feel your situation is an emergency, please call 911 immediately. . Non-Emergent Contact Non-Emergency issues call your: Specialist . . "Provider Documentation" section prepared by Kapil Lopez. .
[2017-03-21 15:40] VITALS: BP 115/71; PULSE 78; O2SAT 97
--- NOTE | 2017-03-21 16:09 | OPERATIVE REPORT ---
DATE OF OPERATION: 03/21/2017 PREOPERATIVE DIAGNOSES: Lumbar spondylolisthesis, suspected lumbar facet arthropathy, chronic low back pain. POSTOPERATIVE DIAGNOSES: Same. PROCEDURE: Bilateral L5-S1 medial branch blocks under fluoroscopic guidance. INDICATIONS: The patient is a 42-year-old white female that presents today for medial branch blocks to improve chronic low back pain that she experiences. She presents today for diagnostic testing to confirm that indeed the generator of her low back pain is the facet arthritis. PHYSICAL EXAMINATION: Pleasant female seated comfortably. She has point tenderness to palpation in the lower L5-S1 area. This gets worse with extension, is relieved with flexion. She has no focal weakness. Negative seated straight leg raises. CONSENT: Verbal and written consent was obtained from the patient. Risks and benefits were reviewed. Risks include but are not limited to abscess and allergic reaction. The patient wishes to proceed. PROCEDURE IN DETAIL: The patient was taken back to the special procedures room of [facility]. She was maintained in a prone position. Backside was cleansed with Betadine x3 and a dry sterile dressing was applied. Fluoroscope was used to identify the left L5 transverse process junction and left sacral ala and the overlying skin of these areas were anesthetized with 1.25 mL of lidocaine 1% with a 25 gauge 1.5-inch needle. A 25 gauge 3.5-inch spinal needle was then directed, contacting bone at each area and then anesthetized with 1 mL of bupivacaine 0.25%. The right L5 transverse process junction and the right sacral ala then were fluoroscopically identified. Overlying skin anesthetized with 1.25 mL of lidocaine 1% with a 25 gauge 1.5-inch needle at each site. A 25 gauge 3.5-inch spinal needle was placed, contacting bone at each site. She was then injected after negative aspiration with 1 mL of bupivacaine 0.25%. DISPOSITION: 1. The patient is taken out into the discharge recovery area where she will be discharged home once discharge criteria have been met. 2. Follow up in the [facility] office in 2-4 weeks. I have asked the patient to keep a pain diary for the next 48 hours to determine if indeed this has improved her chronic low back pain. I attest to the content of the Intraoperative Record and any orders documented therein. Any exception s are noted below.
== END | disposition home or self-care (01) ==
LOC: X.SURG 14:08
PROVIDERS: ATTEND Physical Medicine & Rehabilitation
DX: M43.16 Spondylolisthesis, lumbar region (principal)

== ENCOUNTER → 2017-05-30 | Day surgery (SDC) | payer OTHER ==
[2017-04-30 11:51] VITALS: Ht 163.8 cm; Wt 100.0 kg
[~2017-05-30] VITALS: Ht 163.8 cm; Wt 100.0 kg
[~2017-05-30] MED LIST changes: +LACTATED RINGER'S 1000ML 1,000 ML IV SCH; +LACTATED RINGER'S 1000ML 500 ML IV SCH; -LIDOCAINE HCL 1% MPF 5 ML VIAL ONE; +LIDOCAINE MPF 1% INJ 30 ML SDV (L&D) INFIL ONE
[2017-05-30 13:37] VITALS: TEMP 36.9
--- NOTE | 2017-05-30 13:40 | Discharge Instructions ---
Discharge Instructions Date of Service May 30, 2017. Visit Reason for Visit: Low Back Pain Discharge Discharge Diagnosis / Problem: low back pain Discharge Goals Goal(s): Decrease discomfort, Improve function Activity Recommendations Activity Limitations: resume your previous activity Anesthesia . Post Anesthesia Instructions: If you have had General Anesthesia or IV Sedation: * Do not drive today. * Resume driving when surgeon permits. * Do not make important decisions or sign legal documents today. * Call surgeon for: 1. Temperature elevations greater than 101 degrees F. 2. Uncontrollable pain. 3. Excessive bleeding. 4. Persistent nausea and vomiting. 5. Medication intolerance (nausea, vomiting or rash). * For nausea and vomiting use only clear liquids such as: tea, soda, bouillon until nausea subsides, then gradually increase diet as tolerated. * If you have any concerns or questions, call your surgeon's office. If physician is unavailable and it is an emergency, call 911 or go to the nearest emergency room. . Diet Recommendations Recommended Home Diet: resume previous diet Procedures Procedures Performed: Bilateral L5-S1 radio Frequency Denervation Pending Studies Studies pending at discharge: no Medical Emergencies . Who to Call and When: Medical Emergencies: If at any time you feel your situation is an emergency, please call 911 immediately. . Non-Emergent Contact Non-Emergency issues call your: Specialist . . "Provider Documentation" section prepared by Kapil Lopez. .
[2017-05-30 13:47] VITALS: BP 116/75; PULSE 86; O2SAT 94
--- NOTE | 2017-05-30 14:13 | OPERATIVE REPORT ---
DATE OF OPERATION: 05/30/2017 PREOPERATIVE DIAGNOSES: Chronic low back pain, bilateral L5-S1 facet arthropathy, and lumbar spondylolisthesis. POSTOPERATIVE DIAGNOSES: Same. PROCEDURE: Bilateral L5-S1 radiofrequency facet denervations under fluoroscopic guidance. INDICATIONS: The patient is a 42-year-old white female who underwent bilateral L5-S1 medial branch blocks with a complete pain relief for that day. She returns today given a positive diagnostic block for radiofrequency denervation bilaterally L5-S1 to provide her with longer lasting pain relief. PHYSICAL EXAMINATION: GENERAL: Pleasant female seated comfortably, in no apparent distress. MUSCULOSKELETAL: Lumbar paraspinal muscles were palpated. There was some tenderness noted at the L5-S1 facet areas, worse with extension, problems with flexion. CONSENT: Verbal and written consent was obtained from the patient. Risks and benefits were reviewed. Risks include but are not limited to abscess and allergic reaction and nerve denervation. She wishes to proceed. DESCRIPTION OF PROCEDURE: The patient was taken back to the special procedures room of the [facility] where she was maintained in a prone position. Backside was cleansed with alcohol x3. Given her significant allergic reactions both Betadine and chlorhexidine prep. The alcohol was allowed to dry completely prior to the procedure. She then underwent fluoroscopic identification of the left L5 transverse process junction and the left sacral ala. The overlying skin was anesthetized with 1.5 mL of lidocaine 1%, 25 gauge 1.5-inch needle. A 22 gauge 10 cm [employer] needle was contacted bone at each site, it was maneuvered around so that the sensory stimulation provoked at 0.2 and 0.3 volts respectively at 5 and the ala and motor stimulation did not provoke anything but localized spasms of the back, nothing radiating down the leg or into the foot. After identification of the 2 nerve root areas, they were then anesthetized with 1 mL lidocaine 1% and then a denervation 80 degrees 100 seconds x2 at L5 and then on the denervation at the sacral ala. On the 1st denervation within 20 seconds, the patient began feeling some sensations down into the calf and the foot. The procedure was stopped. The needle was examined, it was not in the S1 foramen or near it, it was superior and lateral to it; nonetheless, it was maneuvered to the edge of the top of the sacral ala at the border. This was then anesthetized with an additional 1 mL of lidocaine 1% after sensory stimulation reprovoked pain and motor stimulation provoked local slight paraspinal spasms, but nothing radiating or removing down the leg. She then underwent denervation 80 degrees 40 seconds and then she began feeling paresthesias into the foot, this was discontinued. The right L5 transverse process junction and the right sacral ala were then fluoroscopically identified. Overlying skin was anesthetized with 1.5 mL of lidocaine 1% and a 22 gauge 10 cm [employer] needle contacted the bony target. Sensory stimulation provoked sensation with 0.2 volts at each site. Motor stimulation provoked robust paraspinal spasms, more so at L5 than at the sacral ala and then it was anesthetized with an additional mL of lidocaine 1% at each site and then underwent denervation 80 degrees 100 seconds x2 at each site, first at L5 then the sacral ala and this was followed by injection of bupivacaine 0.25%. She did not feel any radiating pain down the leg or the foot during the right-sided denervations. DISPOSITION: 1. The patient is taken out into the discharge recovery area where she will be discharged home once discharge criteria have been met. 2. Follow up in the [facility] office in 2-4 weeks. I attest to the content of the Intraoperative Record and any orders documented therein. Any exception s are noted below.
== END | disposition home or self-care (01) ==
LOC: X.SURG 11:59
PROVIDERS: ATTEND Physical Medicine & Rehabilitation
DX: M43.16 Spondylolisthesis, lumbar region (principal); M46.96 Unspecified inflammatory spondylopathy, lumbar region

== ENCOUNTER → 2017-07-25 | Day surgery (SDC) | payer OTHER ==
[2017-07-05 11:10] VITALS: Ht 163.8 cm; Wt 100.0 kg
[~2017-07-25] VITALS: Ht 163.8 cm; Wt 100.0 kg
[~2017-07-25] MED LIST changes: -AMOX500C3 PO; -BUPIVACAINE 0.25% 2.5MG/ML PF 10 ML VIAL ONE; -LACTATED RINGER'S 1000ML 1,000 ML IV SCH; -LACTATED RINGER'S 1000ML 500 ML IV SCH; +LIDOCAINE HCL 1% MPF 5 ML VIAL ONE; -LIDOCAINE MPF 1% INJ 30 ML SDV (L&D) INFIL ONE; +SODIUM CHLORIDE 0.9% INJ 10 ML VIAL ONE
--- NOTE | 2017-07-25 13:22 | [facility] Post Operative Brief Note ---
Immediate Operative Summary Operative Date Jul 25, 2017. Pre-Operative Diagnosis SUSPECTED L5-S1 DISC DISEASE WITH LEFT GREATER THAN RIGHT L5 RADICULOPATHY. Post-Operative Diagnosis SAME Procedure(s) Performed CAUDAL EPIDURAL STEROID INJECTION Surgeon DR. Juan DOVE Manifest/Order Organizer Print Orders Surgeon(s) None Estimated Blood Loss None Findings Consistent with Post-Op Diagnosis Specimens NA Drains None Anesthesia Type Local Complication(s) none Disposition Disposition:
--- NOTE | 2017-07-25 13:23 | Discharge Instructions ---
Discharge Instructions Date of Service Jul 25, 2017. Visit Reason for Visit: Low Back Pain Discharge Discharge Diagnosis / Problem: leg pain Discharge Goals Goal(s): Decrease discomfort, Improve function Activity Recommendations Activity Limitations: resume your previous activity Anesthesia . Post Anesthesia Instructions: If you have had General Anesthesia or IV Sedation: * Do not drive today. * Resume driving when surgeon permits. * Do not make important decisions or sign legal documents today. * Call surgeon for: 1. Temperature elevations greater than 101 degrees F. 2. Uncontrollable pain. 3. Excessive bleeding. 4. Persistent nausea and vomiting. 5. Medication intolerance (nausea, vomiting or rash). * For nausea and vomiting use only clear liquids such as: tea, soda, bouillon until nausea subsides, then gradually increase diet as tolerated. * If you have any concerns or questions, call your surgeon's office. If physician is unavailable and it is an emergency, call 911 or go to the nearest emergency room. . Diet Recommendations Recommended Home Diet: resume previous diet Procedures Procedures Performed: CAUDAL EPIDURAL STEROID INJECTION Pending Studies Studies pending at discharge: no Medical Emergencies . Who to Call and When: Medical Emergencies: If at any time you feel your situation is an emergency, please call 911 immediately. . Non-Emergent Contact Non-Emergency issues call your: Specialist . . "Provider Documentation" section prepared by Kapil Lopez. .
[2017-07-25 13:36] VITALS: BP 127/90; PULSE 75; O2SAT 99
--- NOTE | 2017-07-25 13:40 | OPERATIVE REPORT ---
DATE OF OPERATION: 07/25/2017 PREOPERATIVE DIAGNOSES: Post-laminectomy syndrome, L5-S1 disk disease with a left greater than right L5 radiculopathy. POSTOPERATIVE DIAGNOSES: Same. PROCEDURE: Caudal epidural steroid injection under fluoroscopic guidance. INDICATIONS: The patient is a 42-year-old white female who had done well following the denervation, but noted that she developed radicular pain following an L5 dermatomal distribution. She has had prior surgery and decision will be made to enter via a caudal approach to help eliminate the radicular pain. PHYSICAL EXAMINATION: Pleasant female seated comfortably. She has some tenderness to palpation over her sacroiliac joints as well as the sciatic notch. She had normal lower extremity strength. Negative seated straight leg raise, but decreased subjective sensation in the left L5 dermatomal distribution. CONSENT: Verbal and written consent was obtained from the patient. Risks and benefits were reviewed. Risks include, but are not limited to epidural abscess and allergic reaction and she wishes to proceed. DESCRIPTION OF PROCEDURE: The patient was taken back into the special procedures room of the [facility], where she was maintained in a prone position. Backside was cleansed with alcohol x3 and allowed to dry before dry sterile dressing was applied. Fluoroscope was used to identify the sacral hiatus in the lateral view. Overlying skin was anesthetized with 5 mL of lidocaine 1% with a 25-gauge 1-1/2 inch needle. A 22-gauge 5-inch spinal needle was then directed under lateral fluoroscopy guidance into the sacral hiatus and advanced into the canal about a half an inch to 3/4 of an inch. She then underwent injection after negative aspiration of 40 mg of Depo-Medrol and 4 mL of preservative free sodium chloride. Injection was well tolerated. DISPOSITION: 1. The patient was taken out into the discharge recovery area, where she will be discharged home once discharge criteria have been met. 2. Follow up in the [facility] office in 4 weeks' time. I attest to the content of the Intraoperative Record and any orders documented therein. Any exception s are noted below.
== END | disposition home or self-care (01) ==
LOC: X.SURG 11:36
PROVIDERS: ATTEND Physical Medicine & Rehabilitation
DX: M51.16 Intervertebral disc disorders with radiculopathy, lumbar region (principal); M96.1 Postlaminectomy syndrome, not elsewhere classified; M47.816 Spondylosis without myelopathy or radiculopathy, lumbar region

== ENCOUNTER → 2018-01-29 | Outpatient (CLI) | payer OTHER ==
[~2018-01-29] MED LIST changes: +BUDE180I INH; -LIDOCAINE HCL 1% MPF 5 ML VIAL ONE; -SODIUM CHLORIDE 0.9% INJ 10 ML VIAL ONE
--- NOTE | 2018-01-29 13:14 | DIAGNOSTIC IMAGING REPORT ---
THORACOLUMBAR SPINE 2 VIEWS CLINICAL HISTORY: BACK PAIN pain COMPARISON STUDY: 07/01/2015 FINDINGS: biostimulator leads positioned with the superior tip of the T11-T12 disc space level. The connecting wires appear intact. The leads enter the epidural space at the T12-L1 level. IMPRESSION: Superior extent of the leads in the epidural space are at the T11-T12 disc space level. The above report was generated using voice recognition software. It may contain grammatical, syntax or spelling errors. Electronically signed by: Mayito Castillo M.D. 01/29/2018 1:13 PM Dictated Date/Time: 01/29/2018 1:12 PM
== END | disposition home or self-care (01) ==
LOC: C.RADBC 12:26
PROVIDERS: ATTEND Physician Assistant Medical
DX: M54.9 Dorsalgia, unspecified (principal)

== ENCOUNTER → 2018-02-12 | Day surgery (SDC) | payer OTHER ==
[2018-02-12] VITALS (10 sets, daily range): BP systolic 115–145; BP diastolic 68–85; PULSE 71–96; TEMP 36.5–37; O2SAT 94–97
[~2018-02-12] MED LIST changes: +ACETAMINOPHEN 500 MG TAB PO PRN; +AMOX500C3 PO; -AZEL0.15 NAE; -FORMULA 303 PO; -GABA-113 PO; +LYR50 PO; -TIZA4CAP PO
--- NOTE | 2018-02-12 09:57 | Discharge Instructions ---
Discharge Instructions Procedure Procedure Date: Feb 12, 2018. Reason for visit: Low Back Pain. Discharge Discharge Date: Feb 12, 2018. Discharge Diagnosis: Pain.Radiculopathy Instructions Activity Recommendations: 1 Day-May resume regular activity, 48 Hours of decreased exertion Return to School/Work: no limitations Recommended Home Diet: Resume Previous Diet Allergies Coded Allergies: Esomeprazole (Verified Allergy, Intermediate, HIVES, 02/12/18) Levofloxacin (Unverified Allergy, Intermediate, hives, 02/12/18) Nortriptyline (Unverified Allergy, Intermediate, rash, 02/12/18) Tetracyclines (Unverified Allergy, Intermediate, rash/hives, 02/12/18) Adhesives (Verified Allergy, Mild, RASH, 02/12/18) Azithromycin (Unverified Allergy, Unknown, HIVES, 02/12/18) Cefaclor (Unverified Allergy, Unknown, HIVES, 07/25/17) Cefuroxime (Unverified Allergy, Unknown, rash, 02/12/18) Erythromycin (Verified Allergy, Unknown, AKNE-MYCIN--HIVES, 02/12/18) Fluoxetine (Unverified Allergy, Unknown, HIVES, 02/12/18) Iodine (Verified Allergy, Unknown, rash, 02/12/18) Medroxyprogesterone (Unverified Allergy, Unknown, HIVES, 02/12/18) Tramadol (Unverified Allergy, Unknown, ITCHING, 02/12/18) Codeine (Unverified Adverse Reaction, Intermediate, n/v, 02/12/18) Indomethacin (Unverified Adverse Reaction, Intermediate, n/v, 02/12/18) Uncoded Allergies: CHLORAPREP (Allergy, Intermediate, rash/itching, 03/21/17) DERMABOND (Allergy, Mild, HIVES, 08/15/12) Elaine Blake Recommendations: Call your doctor if: * Temperature above 101 degrees * Pain not relieved by pain medicine ordered * There is increased drainage or redness from any incision * You have any unanswered questions or concerns. Your Doctors Instructions noted above were prepared by provider Mayito Castillo. Patient Signature Section: Patient Instructions Signature Page Michelle Chatman Patient (or Guardian) Signature/Date: I have read and understand the instructions given to me by my caregivers. Caregiver/RN/Doctor Signature/Date: The above-named patient and/or guardian has received patient instructions on this date. + Original Patient Signature Page (only) stays with chart. Please make copy for patient.
--- NOTE | 2018-02-12 10:21 | DIAGNOSTIC IMAGING REPORT ---
CERVICAL SPINE WITH CLINICAL HISTORY: CT TECHNIQUE: Transaxial acquisition with multi axial reformatted images COMPARISON STUDY: None FINDINGS: Findings consistent anterior cervical fusion from C3 through C6. Mild broad-based disc bulge C6-C7 partially effacing the anterior subarachnoid space. No evidence for significant displacement of the cervical cord. No compromise of the neuroforamina. IMPRESSION: 1. Mild broad-based disc bulge C6-C7 in contact with the cervical cord but no significant displacement of that structure. 2. No evidence of disc herniation or significant spinal stenosis. 3. Extensive anterior fusion-type change as described. The above report was generated using voice recognition software. It may contain grammatical, syntax or spelling errors. Electronically signed by: Mayito Castillo M.D. 02/12/2018 10:20 AM Dictated Date/Time: 02/12/2018 10:12 AM
--- NOTE | 2018-02-12 10:24 | DIAGNOSTIC IMAGING REPORT ---
THORACIC SPINE WITH CLINICAL HISTORY: CT pain. Neuropathy. TECHNIQUE: Transaxial acquisition with multi axial reformatted images. COMPARISON STUDY: None FINDINGS: Vertebral body stature is normal. There is minimal degenerative intervertebral disc change. Density characteristics of the cervical cord are unremarkable. There are findings of a slight broad-based disc bulge C6-C7. The show no significant impact with cervical cord. Neural foramina patent bilaterally at all levels. IMPRESSION: 1. Minimal broad-based disc bulge C6-C7. 2. No significant impact upon the cervical cord or neural foramina. 3. Remainder the study is unremarkable. Note is made of epidural bio stimulator electrodes overlying the epidural space at the low thoracic region. The above report was generated using voice recognition software. It may contain grammatical, syntax or spelling errors. Electronically signed by: Mayito Castillo M.D. 02/12/2018 10:23 AM Dictated Date/Time: 02/12/2018 10:20 AM
--- NOTE | 2018-02-12 10:30 | DIAGNOSTIC IMAGING REPORT ---
LUMBAR SPINE CT MYELOGRAM HISTORY: Low back pain. TECHNIQUE: Multiaxial CT images of the lumbar spine were performed following the intrathecal injection of contrast. COMPARISON STUDY: Outside hospital lumbar spine MRI 08/13/2017. FINDINGS: No fractures within the lumbar spine. Bilateral L5 pars defect. Alignment is intact. Minimal disc space narrowing at L5-S1, unchanged. There is a spinal stimulator lead which enters posteriorly at the T12-L1 interlaminar space and extends cephalad to the T11 level. The conus terminates at the L1 level. Paraspinal soft tissues are unremarkable. There is no significant central canal or neural foraminal narrowing. Small broad-based posterior disc bulge at L5-S1. IMPRESSION: 1. No central canal or neural foraminal narrowing. 2. Minimal disc space narrowing at L5-S1 with a small broad-based posterior disc bulge. 3. The spinal stimulator terminates at the T11 level. Electronically signed by: Guillermo Burger M.D. 02/12/2018 10:28 AM Dictated Date/Time: 02/12/2018 10:21 AM
--- NOTE | 2018-02-13 06:49 | DIAGNOSTIC IMAGING REPORT ---
MYELOGRAM,SUPER/INTER 2 MORE CLINICAL HISTORY: painful neuropathy TECHNIQUE: Following informed consent, a 22-gauge needle was placed to the L3-L4 level lumbar spine. This is followed by the administration of 15 cc of nonionic contrast. FINDINGS: Routine images of the lumbar spine show no major compromise of the spinal canal. There is a bile stimulator in the low thoracic region. Contrast was extended to the cervical region. Patient was transferred to CT for further evaluation. There are no complications of the time of the procedure. COMPARISON STUDY: None FINDINGS: Successful complete myelogram with follow-up images to be obtained in CT. IMPRESSION: Successful complete myelogram. No complications. Patient was transferred to CT study for complete scanning of the spine. The above report was generated using voice recognition software. It may contain grammatical, syntax or spelling errors. Electronically signed by: Mayito Castillo M.D. 02/12/2018 10:05 AM Dictated Date/Time: 02/12/2018 10:02 AM
== END | disposition home or self-care (01) ==
LOC: C.ACU 07:27
PROVIDERS: ATTEND Physician Assistant Medical
DX: M54.5 Low back pain (principal)